=== PATIENT | male | born 1965 | race Caucasian/White ===

== ENCOUNTER 2017-04-25 00:05 | Emergency (ER) | payer MEDICAID ==
[~2017-04-25] VITALS: Ht 157.5 cm; Wt 72.3 kg
[2017-04-25] MEDS ORDERED: IBUPROFEN 600MG TABLET PO ONE (05:30)
[2017-04-25 05:44] VITALS: BP 181/85
== END 2017-04-25 12:31 | disposition home or self-care (01) ==
LOC: ER 12:31
DX: H66.91 Otitis media, unspecified, right ear (principal); J02.9 Acute pharyngitis, unspecified; I10 Essential (primary) hypertension; E11.9 Type 2 diabetes mellitus without complications; E78.00 Pure hypercholesterolemia, unspecified
CPT/HCPCS: 99283; Z7610

== ENCOUNTER → 2017-04-25 | Emergency (ER) | END | disposition home or self-care (01) | LOC: ER 12:17 | DX: Z53.9 Procedure and treatment not carried out, unspecified reason (principal) ==